=== PATIENT | male | born 1955 | race Caucasian/White ===

== ENCOUNTER 2021-12-24 18:54 | Inpatient (IN) | payer MEDICARE, MEDICAID ==
[2021-12-24] MEDS ORDERED: Nitroglycerin 2% Ointment 1 INCH/1 GM Packet ONE (19:51)
[2021-12-24] MEDS ORDERED: Furosemide 40 MG/4 ML VIAL ONE (19:51)
[2021-12-24 20:04] LABS: #Basophils 0.1 thou/uL (0.0-0.2); #Eosinphils 0.3 thou/uL (0.0-0.7); #Lymphocytes 1.2 thou/uL (1.20-3.40); #Monocytes 0.3 thou/uL (0.11-0.59); #Neutrophils 8.5 thou/uL (1.40-6.50); %Basophils 0.7 % (0.0-1.0); %Eosinophils 3.2 % (0.0-10.0); %Lymphocytes 11.6 % (21.0-51.0); %Monocytes 2.4 % (0.0-10.0); Hemoglobin 14.9 g/dL (14.0-18.0); Mean Corpuscular HGB CONC 32.4 g/dL (32.0-36.0); Mean Corpuscular Hemoglobin 30.5 pg (27.0-31.0); Mean Corpuscular Volume 94.2 fl (78.0-98.0); Mean Platelet Volume 9.4 fL (7.4-10.4); Platelet Count 159 10x3/uL (130-400); RBC Distribution Width 12.8 % (11.5-14.5); Red Blood Cell (RBC) Count 4.87 mill/uL (4.70-6.10); White Blood Cell (WBC) Count 10.3 10x3/uL (4.8-10.8)
[2021-12-24 20:26] LABS: ALT (SGPT) 8 U/L (8-55); AST (SGOT) 18 U/L (5-34); Albumin 4.2 g/dL (3.4-4.8); Alkaline Phosphatase 76 U/L (40-110); Anion Gap 13 mmol/L (10-20); BUN (Urea Nitrogen) 23 mg/dL (8.4-25.7); Bilirubin, Total 1.7 mg/dL (0.2-1.2); Calc. Creatinine Clearance 0 mL/min (70-130); Carbon Dioxide 24 mmol/L (23-31); Chloride 105 mmol/L (98-107); Estimated GFR 45; Globulin 3.6 g/dL (2.4-3.5); Glucose 131 mg/dL (80-115); Potassium 3.8 mmol/L (3.5-5.1); Protein, Total 7.8 g/dL (5.8-8.1); Sodium 138 mmol/L (136-145)
[2021-12-24 22:24] LABS: Magnesium 2.1 mg/dL (1.6-2.6)
[2021-12-24] MEDS ORDERED: Acetaminophen 325 MG TAB PO PRN (22:41)
[2021-12-24] MEDS ORDERED: Ondansetron PF 4 MG/2 ML Vial IVP PRN (22:41)
[2021-12-25 00:22] VITALS: BMI 29.4
[2021-12-25] MEDS: Furosemide 40 MG/4 ML VIAL SLOW IVP SCH ×2 (05:17→16:00)
[2021-12-25 05:23] LABS: #Basophils 0.1 thou/uL (0.0-0.2); #Eosinphils 0.4 thou/uL (0.0-0.7); #Lymphocytes 2.2 thou/uL (1.20-3.40); #Monocytes 0.6 thou/uL (0.11-0.59); #Neutrophils 8.1 thou/uL (1.40-6.50); %Basophils 0.6 % (0.0-1.0); %Eosinophils 3.4 % (0.0-10.0); %Lymphocytes 19.7 % (21.0-51.0); %Monocytes 4.9 % (0.0-10.0); %Neutrophils 71.5 % (42.0-75.0); Hemoglobin 14.6 g/dL (14.0-18.0); Mean Corpuscular HGB CONC 32.9 g/dL (32.0-36.0); Mean Corpuscular Hemoglobin 31.1 pg (27.0-31.0); Mean Corpuscular Volume 94.6 fl (78.0-98.0); Mean Platelet Volume 9.6 fL (7.4-10.4); Platelet Count 167 10x3/uL (130-400); RBC Distribution Width 12.8 % (11.5-14.5); Red Blood Cell (RBC) Count 4.69 mill/uL (4.70-6.10); White Blood Cell (WBC) Count 11.3 10x3/uL (4.8-10.8)
[2021-12-25 05:42] LABS: Anion Gap 12 mmol/L (10-20); BUN (Urea Nitrogen) 21 mg/dL (8.4-25.7); Calc. Creatinine Clearance 65 mL/min (70-130); Calcium 9.1 mg/dL (7.8-10.44); Carbon Dioxide 29 mmol/L (23-31); Chloride 102 mmol/L (98-107); Estimated GFR 50; Glucose 88 mg/dL (80-115); Potassium 3.2 mmol/L (3.5-5.1); Sodium 140 mmol/L (136-145)
[2021-12-25] MEDS ORDERED: Potassium Chloride 20 MEQ TAB PO SCH (07:30)
[2021-12-25] MEDS ORDERED: Losartan 25 MG TAB PO SCH (09:00)
[2021-12-25] MEDS: Aspirin 81 mg Enteric Coated Tablet PO SCH (09:54)
[2021-12-25] MEDS: Heparin 5,000 UNITS/ML VIAL SC SCH ×2 (09:55→21:44)
[2021-12-25] MEDS: Clopidogrel Bisulfate 75 MG TAB PO SCH (09:55)
[2021-12-25] MEDS: Carvedilol 6.25 MG TAB PO SCH ×2 (09:55→21:42)
[2021-12-25] MEDS: Atorvastatin Calcium 40 MG TAB PO SCH (21:42)
[2021-12-25] MEDS: Sacubitril 49 MG/Valsartan 51 MG TABLET PO SCH (21:44)
[2021-12-26 04:50] LABS: #Basophils 0.1 thou/uL (0.0-0.2); #Eosinphils 0.4 thou/uL (0.0-0.7); #Lymphocytes 2.8 thou/uL (1.20-3.40); #Monocytes 0.6 thou/uL (0.11-0.59); %Basophils 0.7 % (0.0-1.0); %Eosinophils 3.6 % (0.0-10.0); %Lymphocytes 25.8 % (21.0-51.0); %Monocytes 5.8 % (0.0-10.0); %Neutrophils 64.1 % (42.0-75.0); Hemoglobin 15.7 g/dL (14.0-18.0); Mean Corpuscular HGB CONC 33.3 g/dL (32.0-36.0); Mean Corpuscular Hemoglobin 31.6 pg (27.0-31.0); Mean Platelet Volume 9.3 fL (7.4-10.4); Platelet Count 192 10x3/uL (130-400); RBC Distribution Width 12.9 % (11.5-14.5); Red Blood Cell (RBC) Count 4.97 mill/uL (4.70-6.10); White Blood Cell (WBC) Count 10.9 10x3/uL (4.8-10.8)
[2021-12-26 05:20] LABS: Anion Gap 13 mmol/L (10-20); BUN (Urea Nitrogen) 25 mg/dL (8.4-25.7); Calc. Creatinine Clearance 57 mL/min (70-130); Calcium 9.3 mg/dL (7.8-10.44); Carbon Dioxide 26 mmol/L (23-31); Chloride 102 mmol/L (98-107); Estimated GFR 44; Glucose 99 mg/dL (80-115); Potassium 3.4 mmol/L (3.5-5.1); Sodium 138 mmol/L (136-145)
[2021-12-26] MEDS: Furosemide 40 MG/4 ML VIAL SLOW IVP SCH (05:42)
[2021-12-26] MEDS: Carvedilol 6.25 MG TAB PO SCH ×2 (08:44→20:52)
[2021-12-26] MEDS: Spironolactone 25 MG TAB PO SCH (08:44)
[2021-12-26] MEDS: Aspirin 81 mg Enteric Coated Tablet PO SCH (08:44)
[2021-12-26] MEDS: Clopidogrel Bisulfate 75 MG TAB PO SCH (08:44)
[2021-12-26] MEDS: Sacubitril 49 MG/Valsartan 51 MG TABLET PO SCH ×2 (08:44→20:52)
[2021-12-26] MEDS: Heparin 5,000 UNITS/ML VIAL SC SCH ×2 (08:46→20:52)
[2021-12-26] MEDS ORDERED: Potassium Chloride 20 MEQ TAB PO SCH (09:15)
[2021-12-26 14:01] LABS: Potassium 4.1 mmol/L (3.5-5.1)
[2021-12-26] MEDS: Atorvastatin Calcium 40 MG TAB PO SCH (20:52)
[2021-12-27 05:17] LABS: #Basophils 0.1 thou/uL (0.0-0.2); #Eosinphils 0.4 thou/uL (0.0-0.7); #Lymphocytes 2.9 thou/uL (1.20-3.40); #Monocytes 0.9 thou/uL (0.11-0.59); #Neutrophils 6.5 thou/uL (1.40-6.50); %Basophils 1.1 % (0.0-1.0); %Eosinophils 3.8 % (0.0-10.0); %Lymphocytes 26.7 % (21.0-51.0); %Neutrophils 60.5 % (42.0-75.0); Hemoglobin 15.9 g/dL (14.0-18.0); Mean Corpuscular HGB CONC 32.3 g/dL (32.0-36.0); Mean Corpuscular Hemoglobin 30.7 pg (27.0-31.0); Mean Platelet Volume 9.4 fL (7.4-10.4); Platelet Count 213 10x3/uL (130-400); RBC Distribution Width 13.1 % (11.5-14.5); Red Blood Cell (RBC) Count 5.19 mill/uL (4.70-6.10); White Blood Cell (WBC) Count 10.8 10x3/uL (4.8-10.8)
[2021-12-27 05:48] LABS: Anion Gap 14 mmol/L (10-20); BUN (Urea Nitrogen) 30 mg/dL (8.4-25.7); Calc. Creatinine Clearance 46 mL/min (70-130); Calcium 9.5 mg/dL (7.8-10.44); Carbon Dioxide 26 mmol/L (23-31); Chloride 101 mmol/L (98-107); Estimated GFR 34; Glucose 102 mg/dL (80-115); Potassium 3.9 mmol/L (3.5-5.1); Sodium 137 mmol/L (136-145)
[2021-12-27 09:07] VITALS: BP 123/80; TEMP 97.3
[2021-12-27] MEDS: Sacubitril 49 MG/Valsartan 51 MG TABLET PO SCH (09:10)
[2021-12-27] MEDS: Carvedilol 6.25 MG TAB PO SCH (09:10)
[2021-12-27] MEDS: Spironolactone 25 MG TAB PO SCH (09:10)
[2021-12-27] MEDS: Clopidogrel Bisulfate 75 MG TAB PO SCH (09:11)
[2021-12-27] MEDS: Aspirin 81 mg Enteric Coated Tablet PO SCH (09:11)
[2021-12-27] MEDS: Heparin 5,000 UNITS/ML VIAL SC SCH (09:13)
== END 2021-12-27 11:58 | disposition home or self-care (01) | DRG 291 ==
LOC: ERS 18:54 → 2SW 22:41
PROVIDERS: ADMIT Internal Medicine; ATTEND Internal Medicine
DX: I13.0 Hypertensive heart and chronic kidney disease with heart failure and stage 1 through stage 4 chronic kidney disease, or unspecified chronic kidney disease (principal); I50.41 Acute combined systolic (congestive) and diastolic (congestive) heart failure; J96.01 Acute respiratory failure with hypoxia; N17.9 Acute kidney failure, unspecified; I25.10 Atherosclerotic heart disease of native coronary artery without angina pectoris; N18.30 Chronic kidney disease, stage 3 unspecified; I42.9 Cardiomyopathy, unspecified; I48.0 Paroxysmal atrial fibrillation; K59.00 Constipation, unspecified; F41.9 Anxiety disorder, unspecified; E78.5 Hyperlipidemia, unspecified; M10.9 Gout, unspecified; E66.9 Obesity, unspecified; Z68.29 Body mass index [BMI] 29.0-29.9, adult; Z79.899 Other long term (current) drug therapy; Z95.1 Presence of aortocoronary bypass graft; Z79.82 Long term (current) use of aspirin; Z95.5 Presence of coronary angioplasty implant and graft; I25.2 Old myocardial infarction; Z79.01 Long term (current) use of anticoagulants; Z83.3 Family history of diabetes mellitus; Z87.891 Personal history of nicotine dependence; Z20.822 Contact with and (suspected) exposure to COVID-19
CPT/HCPCS: 36415; 71045; 80048; 80053; 83735; 83880; 84484; 85025; 93005; 93306; 96374; 97139; J1644; J1940; U0003; U0005